=== PATIENT | male | born 1960 | race Caucasian/White ===

== ENCOUNTER → 2021-08-26 | Outpatient (CLI) | payer MEDICARE, OTHER ==
[~2021-08-26] MED LIST: ATORVASTATIN CA40 MG PO; BACTRIM DS TAB1 EACH PO; CLARITIN10 MG PO; CLEOCIN HCL300 MG PO; DICLOFENAC SOD100 MG PO; ECOTRIN81 MG PO; ELIMITE 5% CREA60 GM TOP; FENOFIBRATE134 MG PO; GLUCOPHAGE1000 MG PO; GLUCOTROL 10 MG10 MG PO; HUMALOG 10100 UNITS/ SC; HYDROCODON-ACE1 EAC4 PO; JANUVIA100 MG PO; LANTUS INS100 UTS/M1 SC; OMEPRAZOLE20 MG PO; RYTHMOL SR325 MG PO; SYNTHROID25 MCG PO; VITAMIN D250000 UNIT PO; VOLTAREN100 GM TP; ZESTRIL30 MG PO
== END ==
LOC: KOH-I 13:29
DX: M25.571 Pain in right ankle and joints of right foot (principal); M79.671 Pain in right foot; M19.071 Primary osteoarthritis, right ankle and foot
CPT/HCPCS: 73610; 73630

== ENCOUNTER → 2021-09-06 | Outpatient (CLI) | payer MEDICARE, OTHER | LOC: KOH-I 09-04 15:15 | DX: S82.831A Other fracture of upper and lower end of right fibula, initial encounter for closed fracture (principal); M25.571 Pain in right ankle and joints of right foot; X58.XXXA Exposure to other specified factors, initial encounter | CPT/HCPCS: 73721 ==

== ENCOUNTER → 2021-12-02 | Outpatient (CLI) | payer MEDICARE, OTHER | LOC: KOH-I 13:20 | DX: M25.571 Pain in right ankle and joints of right foot (principal); M19.071 Primary osteoarthritis, right ankle and foot | CPT/HCPCS: 73610 ==